=== PATIENT | female | born 1990 | race Caucasian/White ===

== ENCOUNTER 2019-08-17 11:34 | Inpatient (IN) | payer MEDICAID ==
[~2019-08-17] VITALS: Ht 165.1 cm; Wt 83.5 kg
[2019-08-17] MEDS ORDERED: OSC500 PO (11:55)
[2019-08-17] MEDS ORDERED: PREN-380 PO (11:55)
[2019-08-17] MEDS ORDERED: FERR325E14 PO (11:55)
[2019-08-17 12:46] VITALS: BP 132/84
[2019-08-17 14:38] LABS: ALBUMIN 2.8 g/dL (3.4-5.0); ANION GAP 14.4 (8-16); CARBON DIOXIDE 22.4 mmol/L (21-32); CREATININE 0.5 mg/dL (0.6-1.3); POTASSIUM 3.8 mmol/L (3.5-5.1); TOTAL BILIRUBIN 0.2 mg/dL (0.0-1.0)
[2019-08-17 14:45] LABS: PROTHROMBIN TIME 10.2 secs (10.8-13.4)
[2019-08-17] MEDS ORDERED: BETAMETH ACET/BETAMETH NA PH 30 MG/5 ML VIAL IM SCH (16:10)
[2019-08-17] MEDS ORDERED: BETAMETH ACET/BETAMETH NA PH 30 MG/5 ML VIAL IM ONE (16:28)
[2019-08-18] MEDS ORDERED: LACTATED RINGERS 1,000 ML IV SCH (04:05)
[2019-08-18] MEDS ORDERED: ONDANSETRON 4 MG/2 ML VIAL ONE ×2 (04:14→09:03)
[2019-08-18] MEDS ORDERED: ONDANSETRON 4 MG/2 ML VIAL IVP SCH (04:15)
--- NOTE | 2019-08-18 08:24 | NUR ---
PATIENT HAS BEEN SCREENED AND CATEGORIZED LOW NUTRITION RISK. PATIENT WILL BE SEEN WITHIN 7 DAYS OF ADMISSION. 08/24/[address]
[2019-08-18] MEDS ORDERED: ONDANSETRON 8 MG in NACL 0.9% 50 ML IV PRN (08:40)
[2019-08-18] MEDS ORDERED: PANTOPRAZOLE 40 MG TABEC PO SCH ×2 (09:00→21:00)
[2019-08-18] MEDS ORDERED: BETAMETH ACET/BETAMETH NA PH 30 MG/5 ML VIAL IM ONE (16:49)
== END 2019-08-18 17:40 | disposition home or self-care (01) | DRG 566 ==
LOC: MLD 11:34 → OBSVTOIN 11:57 → MFCC 22:38
PROVIDERS: ADMIT Obstetrics & Gynecology; ATTEND Obstetrics & Gynecology
DX: O13.3 Gestational [pregnancy-induced] hypertension without significant proteinuria, third trimester (principal); Z3A.33 33 weeks gestation of pregnancy
CPT/HCPCS: 36415; 76819; 80053; 84156; 85379; 85384; 85610; 85730; G0378; J0702; J2405; J7120; Q0092

== ENCOUNTER 2019-09-08 12:21 | Observation (INO) | payer MEDICAID ==
[~2019-09-08] VITALS: Ht 156 cm; Wt 83.0 kg
[~2019-09-08 12:21] MED LIST: FERR325E14 PO; OSC500 PO; PREN-380 PO
[2019-09-08 14:45] LABS: BASOPHILS % (AUTO) 0.3 % (0.0-2.0); EOSINOPHILS % (AUTO) 0.2 % (0.0-4.0); HEMOGLOBIN 13.9 g/dL (12.0-16.0); LYMPHOCYTES # (AUTO) 1.8 K/uL (2.5-16.5); LYMPHOCYTES % (AUTO) 19.7 % (20.5-51.1); MEAN CORPUSCULAR HEMOGLOBIN 28 pg (27-31); MEAN CORPUSCULAR HGB CONC 33 g/dL (33-37); MEAN CORPUSCULAR VOLUME 83.8 fL (80-94); MONOCYTES # (AUTO) 0.4 K/uL (0.8-1.0); MONOCYTES % (AUTO) 4.8 % (1.7-9.3); NEUTROPHILS # (AUTO) 6.7 K/uL (1.8-7.7); PLATELET COUNT (AUTO) 219 K/uL (140-450); RED BLOOD CELL COUNT(AUTO) 5.01 MIL/uL (4.20-5.40); RED CELL DISTRIBUTION WIDTH 13.3 % (11.6-13.7); WHITE BLOOD COUNT (AUTO) 8.9 K/uL (4.8-10.8)
[2019-09-08 14:50] LABS: APPEARANCE,URINE CLEAR (CLEAR); BILIRUBIN,URINE NEGATIVE (NEGATIVE); BLOOD, URINE TRACE-I (NEGATIVE); COLOR,URINE YELLOW (YELLOW); LEUKOCYTE ESTERASE ,URINE NEGATIVE (NEGATIVE); NITRITE, URINE NEGATIVE (NEGATIVE); UGLUCOSE NEGATIVE (NEGATIVE)
[2019-09-08 15:06] LABS: RBC,URINE 0-5 /HPF (0-5)
[2019-09-08 15:07] LABS: WBC,URINE NONE SEEN /HPF (0-5)
[2019-09-08 15:08] LABS: ALBUMIN 2.8 g/dL (3.4-5.0); ANION GAP 15.3 (8-16); CARBON DIOXIDE 23.6 mmol/L (21-32); CREATININE 0.6 mg/dL (0.6-1.3); POTASSIUM 3.9 mmol/L (3.5-5.1); PROTHROMBIN TIME 9.7 secs (10.8-13.4); TOTAL BILIRUBIN 0.3 mg/dL (0.0-1.0)
--- NOTE | 2019-09-09 07:55 | NUR ---
PATIENT HAS BEEN SCREENED AND CATEGORIZED LOW NUTRITION RISK. PATIENT WILL BE SEEN WITHIN 7 DAYS OF ADMISSION. 09/15/[address]
[2019-09-09 23:35] LABS: URINE TOTAL PROTEIN 2.8 mg/dL (0-12)
== END 2019-09-09 12:55 | disposition home or self-care (01) ==
LOC: MLD 12:21 → MFCC 12:40
PROVIDERS: ADMIT Obstetrics & Gynecology; ATTEND Obstetrics & Gynecology
DX: O16.3 Unspecified maternal hypertension, third trimester (principal); Z3A.36 36 weeks gestation of pregnancy
CPT/HCPCS: 36415; 76805; 80053; 81001; 84156; 85025; 85384; 85610; 85730; 86886; 86900; 86901; G0378; Q0092

== ENCOUNTER 2019-09-16 18:08 | Inpatient (IN) | payer MEDICAID ==
[~2019-09-16] VITALS: Ht 157 cm; Wt 83.0 kg
[2019-09-16] MEDS ORDERED: LACTATED RINGERS 1,000 ML IV SCH (19:00)
[2019-09-16] MEDS ORDERED: CARBOPROST 250 MCG/ML AMP IM PRN (19:00)
[2019-09-16] MEDS ORDERED: METHYLERGONOVINE 0.2 MG/ML AMP IM PRN (19:00)
[2019-09-16 19:58] LABS: BASOPHILS % (AUTO) 0.3 % (0.0-2.0); EOSINOPHILS % (AUTO) 0.2 % (0.0-4.0); HEMATOCRIT 41.2 % (36-48); HEMOGLOBIN 13.7 g/dL (12.0-16.0); LYMPHOCYTES # (AUTO) 2.2 K/uL (2.5-16.5); LYMPHOCYTES % (AUTO) 20.6 % (20.5-51.1); MEAN CORPUSCULAR HEMOGLOBIN 28 pg (27-31); MEAN CORPUSCULAR HGB CONC 33 g/dL (33-37); MEAN CORPUSCULAR VOLUME 83.4 fL (80-94); MONOCYTES # (AUTO) 0.6 K/uL (0.8-1.0); MONOCYTES % (AUTO) 5.8 % (1.7-9.3); NEUTROPHILS # (AUTO) 7.8 K/uL (1.8-7.7); NEUTROPHILS % (AUTO) 73.1 % (42.2-75.2); PLATELET COUNT (AUTO) 208 K/uL (140-450); RED BLOOD CELL COUNT(AUTO) 4.94 MIL/uL (4.20-5.40); RED CELL DISTRIBUTION WIDTH 13.5 % (11.6-13.7); WHITE BLOOD COUNT (AUTO) 10.6 K/uL (4.8-10.8)
[2019-09-16] MEDS ORDERED: MISOPROSTOL 25 MCG TAB VG SCH (20:00)
[2019-09-16] MEDS ORDERED: MISOPROSTOL 25 MCG TAB ONE (20:00)
[2019-09-16 20:20] LABS: ALBUMIN 2.8 g/dL (3.4-5.0); ANION GAP 16.3 (8-16); CREATININE 0.5 mg/dL (0.6-1.3); POTASSIUM 3.3 mmol/L (3.5-5.1); TOTAL BILIRUBIN 0.3 mg/dL (0.0-1.0)
[2019-09-16 20:25] LABS: MAGNESIUM 1.5 mg/dL (1.8-2.4)
[2019-09-16 20:32] LABS: PROTHROMBIN TIME 9.9 secs (10.8-13.4)
[2019-09-16 21:04] LABS: BILIRUBIN,URINE NEGATIVE (NEGATIVE); BLOOD, URINE TRACE-I (NEGATIVE); LEUKOCYTE ESTERASE ,URINE 1+ (NEGATIVE); NITRITE, URINE NEGATIVE (NEGATIVE); UGLUCOSE NEGATIVE (NEGATIVE)
[2019-09-16 21:06] LABS: APPEARANCE,URINE HAZY (CLEAR); COLOR,URINE AMBER (YELLOW)
[2019-09-16 21:13] LABS: RBC,URINE 0-5 /HPF (0-5); WBC,URINE 0-5 /HPF (0-5)
[2019-09-16 21:21] VITALS: BP 124/77
[2019-09-16] MEDS ORDERED: INFLUENZA VACCINE QUAD 0.5 ML SYR IMVAC PRN (21:30)
[2019-09-16] MEDS ORDERED: OXYTOCIN 20 UNITS in LACTATED RINGERS 1,000 ML IV SCH (22:10)
[2019-09-16] MEDS ORDERED: fentaNYL 0.05 MG/ML VIAL IVP PRN (22:10)
[2019-09-17] MEDS ORDERED: OXYTOCIN 20 UNITS/LR PREMIX 1,000 ML IV ONE (00:44)
[2019-09-17] MEDS ORDERED: fentaNYL 0.05 MG/ML VIAL ONE (04:51)
[2019-09-17] MEDS ORDERED: ROPIVACAINE 0.2%/NS PREMIX 100 ML EPI ONE (06:19)
--- NOTE | 2019-09-17 08:23 | NUR ---
PATIENT HAS BEEN SCREENED AND CATEGORIZED LOW NUTRITION RISK. PATIENT WILL BE SEEN WITHIN 7 DAYS OF ADMISSION. 09/23/[address]
[2019-09-17] MEDS ORDERED: ONDANSETRON 4 MG/2 ML VIAL IVP PRN (08:30)
[2019-09-17] MEDS ORDERED: ONDANSETRON 4 MG/2 ML VIAL ONE (08:33)
[2019-09-17] MEDS ORDERED: LIDOCAINE MPF 2% 100 MG/5 ML VIAL INJ ONE (09:25)
[2019-09-17] MEDS ORDERED: LIDOCAINE 1% 500 MG/50 ML VIAL ONE (10:51)
[2019-09-17] MEDS ORDERED: MEASLES, MUMPS, AND RUBELLA 1 VIAL SQVAC PRN (11:20)
[2019-09-17] MEDS ORDERED: OXYTOCIN 10 UNITS/ML VIAL IM PRN (11:20)
[2019-09-17] MEDS ORDERED: METHYLERGONOVINE 0.2 MG TAB PO PRN (11:20)
[2019-09-17] MEDS ORDERED: BENZOCAINE/MENTHOL 20%-0.5% 60 GM CAN TP PRN (11:20)
[2019-09-17] MEDS ORDERED: METHYLERGONOVINE 0.2 MG/ML AMP IM PRN (11:20)
[2019-09-18 09:14] LABS: HEMATOCRIT 38.1 % (36-48); HEMOGLOBIN 12.4 g/dL (12.0-16.0)
[2019-09-19] MEDS: IBUPROFEN 800 MG TAB PO PRN ×2 (01:14→07:43)
[2019-09-19] MEDS ORDERED: IBUP-2213 PO (08:32)
== END 2019-09-19 10:00 | disposition home or self-care (01) | DRG 560 ==
LOC: MLD 18:08 → MFCC 09-17 15:05
PROVIDERS: ADMIT Obstetrics & Gynecology; ATTEND Obstetrics & Gynecology
PROC: 3E0P7VZ Introduction of Hormone into Female Reproductive, Via Natural or Artificial Opening (ICD-10-PCS; 2019-09-16)
PROC: 10E0XZZ Delivery of Products of Conception, External Approach (ICD-10-PCS; principal; 2019-09-17)
PROC: 0HQ9XZZ Repair Perineum Skin, External Approach (ICD-10-PCS; 2019-09-17)
PROC: 00HU33Z Insertion of Infusion Device into Spinal Canal, Percutaneous Approach (ICD-10-PCS; 2019-09-17)
PROC: 3E0R3BZ Introduction of Anesthetic Agent into Spinal Canal, Percutaneous Approach (ICD-10-PCS; 2019-09-17)
PROC: 3E0234Z Introduction of Serum, Toxoid and Vaccine into Muscle, Percutaneous Approach (ICD-10-PCS; 2019-09-18)
DX: O14.94 Unspecified pre-eclampsia, complicating childbirth (principal); O45.93 Premature separation of placenta, unspecified, third trimester; O69.81X0 Labor and delivery complicated by cord around neck, without compression, not applicable or unspecified; O70.0 First degree perineal laceration during delivery; Z37.0 Single live birth; Z3A.39 39 weeks gestation of pregnancy; Z23 Encounter for immunization
CPT/HCPCS: 36415; 51702; 59200; 59409; 80053; 81001; 83735; 85018; 85025; 85384; 85610; 85730; 86592; 86886; 86900; 86901; 87086; 90715; J2001; J2405; J2590; J2795; J3010; J7120

== ENCOUNTER 2024-06-07 15:17 | Emergency (ER) | payer MEDICAID, OTHER ==
[~2024-06-07] VITALS: Ht 160 cm; Wt 89.8 kg
[~2024-06-07 15:17] MED LIST changes: +IBUP-2213 PO
[2024-06-07 15:21] VITALS: BP 130/95; PULSE 87; RESP 24; TEMP 97.8; O2SAT 98
[2024-06-07] MEDS: HYDROXYZINE HYDROCHLORIDE 10 MG TAB PO ONE (16:40)
[2024-06-07] MEDS: ONDANSETRON 4 MG TAB PO ONE (16:40)
[2024-06-07] MEDS ORDERED: ATA25 PO (16:55)
[2024-06-07 17:15] VITALS: BP 129/78; PULSE 83; RESP 11; TEMP 97.8; O2SAT 99
== END 2024-06-07 17:07 | disposition home or self-care (01) ==
LOC: MED 15:17
DX: F43.0 Acute stress reaction (principal); R11.2 Nausea with vomiting, unspecified; R19.7 Diarrhea, unspecified; Z79.1 Long term (current) use of non-steroidal anti-inflammatories (NSAID); Z79.899 Other long term (current) drug therapy
CPT/HCPCS: 81025; 93005; 99283; Q0162